=== PATIENT | female | born 1990 | race Caucasian/White ===

== ENCOUNTER 2023-06-23 13:57 | Outpatient (CLI) | payer OTHER, MEDICAID, SELFPAY ==
[2023-06-23 20:35] LABS: Chlamydia DNA Amplified* NOT DETECTED (No Detected); GC DNA Amplified* NOT DETECTED (No Detected)
== END 2023-06-23 13:58 | disposition home or self-care (01) ==
PROVIDERS: Visit Provider Physician Assistant
DX: Z34.91 Encounter for supervision of normal pregnancy, unspecified, first trimester (principal); Z3A.01 Less than 8 weeks gestation of pregnancy
CPT/HCPCS: 76817; 82565; 82570; 84156; 84450; 84460; 84520; 86592; 86703; 86762; 86787; 86803; 86850; 86900; 86901; 87086; 87340; 87491; 87591

== ENCOUNTER 2023-06-24 16:22 | Outpatient (CLI) | payer OTHER, MEDICAID, SELFPAY | END 2023-06-24 16:23 | disposition home or self-care (01) | LOC: NFLDREF 06-26 06:24 | PROVIDERS: Visit Provider Physician Assistant | DX: Z34.91 Encounter for supervision of normal pregnancy, unspecified, first trimester (principal); Z3A.09 9 weeks gestation of pregnancy; R19.7 Diarrhea, unspecified | CPT/HCPCS: 82570; 84156; 87493 ==